=== PATIENT | male | born 1935 | race Caucasian/White ===

== ENCOUNTER → 2018-12-26 09:44 | Outpatient (CLI) | payer MEDICARE, MEDICAID, SELFPAY ==
--- NOTE | 2018-12-26 09:51 | XR_ITS ---
XR shoulder RT min 2V HISTORY: Right shoulder pain ITS.REASON: 3 views ap, scapular-y and axillary views ORDERING PHYSICIAN: Josephine Long MD PATIENT AGE: 83 years Comparison: None FINDINGS: No fracture or dislocation. No lytic or blastic change. There is normal mineralization. Mild hypertrophic changes are present involving the acromioclavicular joint with calcification superior to the AC joint. Mild osteoarthritis noted at the glenohumeral joint. There is subacromial stenosis with mild downsloping of the lateral aspect of the acromion. This may result and rotator cuff pathology. 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
== END ==
PROVIDERS: PCP Internal Medicine Adolescent Medicine; Visit Provider Orthopaedic Surgery
DX: M25.511 Pain in right shoulder (principal)
CPT/HCPCS: 73030

== ENCOUNTER → 2019-06-18 09:19 | Outpatient (CLI) | payer MEDICARE, MEDICAID, SELFPAY ==
--- NOTE | 2019-06-18 09:24 | CA_ITS ---
[facility] RADIOLOGICAL CONSULTATION Patient Name : Adrian Wilburn X-RAY # : [id number] Physician: OLYA KILPATRICK AGE: 83Y : 1935 00:00:00 ( M ) Exam : CA ECHO DOPPLER COMPLETE ACC # : [id number] Study Date : 06/18/2019 09:33:25 Patient Class : O FINAL REPORT CLINICAL DATA: FINDINGS: TRANSCRIBED REPORT EXAM: Comprehensive 2D, Doppler, and color-flow Echocardiogram Benefits Technician: Zahra Fowler, RT(R) Ht: 5 ft 5 in Wt: 180lbs BSA: 1.89 BP: 171/69 mmHg Indications: COPD, edema, HTN, diabetes, CABG, CVA, GERD M-Mode Dimensions RVDd 2.15 cm (0.9-2.6) LA Diam 3.80 cm (1.9-4.0) LVDd 5.31 cm (3.5-5.7) Ao Diam 3.30 cm (2.0-3.7) LVDs 3.95 cm (3.5-5.7) AV Cusp 1.80 cm (1.5-2.6) IVSd 1.29 cm (0.6-1.1) PWd 0.75 cm (0.6-1.1) EF (Teich) 50.00% FS 25.60% EDV (Teich) 135.90 mL ESV (Teich) 67.90 mL LV Diastology E/A Ratio 1.06 Mitral Valve MV A Velocity 68.00 (40-130 cm/s) Electronically signed by : IMPRESSION: Dictated by at Transcribed by at
== END ==
PROVIDERS: PCP Internal Medicine Adolescent Medicine; Visit Provider Internal Medicine Adolescent Medicine
DX: R60.1 Generalized edema (principal)
CPT/HCPCS: 93306

== ENCOUNTER 2020-04-11 14:50 | Inpatient (IN) | payer MEDICARE, MEDICAID, SELFPAY ==
[2020-04-11] VITALS (7 sets, daily range): BP systolic 91–150; BP diastolic 40–62; PULSE 20–67; RESP 18–22; TEMP 36.6; O2SAT 96–100; BMI 27.7; BMI 37.2
--- NOTE | 2020-04-11 14:43 | ECG_ITS ---
APPROVED REPORT Exam: Resting ECG HR:35 bpm ECG Measurements Heart Rate 35 AXES QRSd 122 QRS 31 QT 526 T 86 QTc 401 <Conclusion> Idioventricular rhythm Nonspecific intraventricular conduction delay ST & T wave abnormality, consider lateral ischemia Abnormal ECG Electronically signed by : Fredo Clement, 04/11/2020 17:21:54
--- NOTE | 2020-04-11 14:53 | XR_ITS ---
PROCEDURE: XR CHEST PORTABLE CLINICAL HISTORY: weakness COMPARISON: CR CXR CHEST(2 VIEWS-NOT PORTABLE) from 01/17/2016 CR CXR CHEST(2 VIEWS-NOT PORTABLE) from 05/16/2016 FINDINGS: The lung kim are fairly well expanded and appear clear of infiltrate. There is borderline cardiomegaly and there are sternal wire sutures and surgical clips seen from a previous bypass procedure. There is no pulmonary congestion and there is no definite pleural fluid. There may be minimal atelectasis at the left costophrenic angle. IMPRESSION: Question left basilar atelectasis otherwise no acute chest pathology noted Dictated by: Dr. Nicanor Lennon MD 04/11/2020 15:21 Dr. Nicanor Lennon MD in [place] 04/11/2020 15:21
--- NOTE | 2020-04-11 14:54 | HMH.EDWEAK ---
ED Disposition Clinical Impression: Hyperkalemia, Bradycardia, Weakness Disposition: Admitted As Inpatient Condition on Discharge: Serious - Critical Care Critical Care Time: Yes Attestation: On , the high probability of a clinically significant, sudden or life threatening deterioration of the following system(s) required my full and direct attention, intervention and personal management. The time I documented below is in addition to time spent performing reported procedures but includes the following listed in this critical care notation. Total Critical Care Time: 30 Vital system(s) involved:: Circulatory Failure, Metabolic Failure, Renal Failure My critical care processes included: Assessment & monitoring of V/S, Initial and Re-exams, Data Review/Interpretation, Coordinating Care, Medication Orders and management, Documentation Medical Decision Making - Medical Records Medical records reviewed: Yes: I reviewed the patient's medical records. - Rodrigo Inquiry Pt receiving controlled substance: No Vital Signs: 04/11/20 14:51 04/11/20 15:01 Temperature 97.9 F Temperature Source Oral Pulse Rate [Left Radial] 39 L Pulse Rate [Right Radial] 48 L Respiratory Rate 18 18 Blood Pressure [Right Arm] 117/44 L 150/62 H Blood Pressure Mean [Right Arm] 68 91 Blood Pressure Source [Right Arm] Automatic Cuff Blood Pressure Position [Right Arm] Sitting Supine 02 Sat by Pulse Oximetry 98 100 Oxygen Delivery Method Room Air Room Air - Lab Data Lab Results 04/11/20 14:55: WBC 8.9, RBC 3.71 L, Hgb 12.0 L, Hct 37.5 L, MCV 101.1 H, MCH 32.4 H, MCHC 32.0, RDW 13.8, Plt Count 174, MPV 8.0, Neut % (Auto) 73.9, Lymph % (Auto) 18.7, [place] % (Auto) 5.7, Eos % (Auto) 0.5, Baso % (Auto) 1.3, Neut # (Auto) 6.6, Lymph # (Auto) 1.7, [place] # (Auto) 0.5, Eos # (Auto) 0.0, Baso # (Auto) 0.1 04/11/20 14:55: Sodium 139, Potassium 8.0 H*, Chloride 107, Carbon Dioxide 16 L, Anion Gap 24.0 H, BUN 50 H, Creatinine 3.80 H, Estimated Creat Clear 21, Estimated GFR 15 L*, Est GFR ( Amer) 18 L*, Glucose 118 H, Calcium 9.3, Total Bilirubin 0.7, AST 207 H, ALT 201 H, Alkaline Phosphatase 114, Troponin I 0.02, Total Protein 8.1, Albumin 4.6, Globulin 3.5 H, Albumin/Globulin Ratio 1.3, Lipase 225 04/11/20 15:35: Urine Color Yellow, Urine Appearance Clear, Urine pH 5.0, Ur Specific [place] 1.025, Urine Protein Negative, Urine Glucose (UA) Negative, Urine Ketones Negative, Urine Blood Negative, Urine Nitrate Negative, Urine Bilirubin Negative, Urine Urobilinogen 0.2, Ur Leukocyte Esterase Negative Result diagrams: 04/11/20 14:55 04/11/20 14:55 Orders (Tests/Meds): ED MEDICATIONS Generic Name Dose Route Start Last Admin Trade Name Freq PRN Reason Stop Dose Admin Sodium Chloride 1,000 mls @ 999 mls/hr 04/11/20 15:15 04/11/20 15:00 Sod Chlor 0.9% 1000ml Bag IV 04/11/20 16:15 999 mls/hr .Q1H1M GIDEON Administration Ondansetron HCl 4 mg 04/11/20 15:41 Zofran 4mg/2ml Vial IV 05/11/20 15:40 ONCE PRN Nausea Discontinued Medications Generic Name Dose Route Start Last Admin Trade Name Freq PRN Reason Stop Dose Admin Albuterol Sulfate 7.5 mg 04/11/20 15:19 Albuterol 0.083% 2.5mg/3ml Neb IH 04/11/20 15:20 ONCE ONE Atropine Sulfate 0.5 mg 04/11/20 15:04 04/11/20 15:00 Atropine 1mg/10ml Syringe IV 04/11/20 15:05 0.5 mg ONCE ONE Administration Dextrose 25 ml 04/11/20 15:19 04/11/20 15:22 Dextrose 50% 50ml Syringe IVP 04/11/20 15:20 25 ml ONCE ONE Administration Insulin Human Regular 10 unit 04/11/20 15:18 04/11/20 15:22 Humulin R Insulin 100 Units/Ml 10ml Vial IVP 04/11/20 15:19 10 unit ONCE ONE Administration ORDERS Category Date Time Status Full Resp Panel (COVID)(INPT) Routine Lab 04/11/20 15:34 Ordered Potassium Timed Lab 04/11/20 16:30 Ordered Troponin I Q3H Lab 04/11/20 18:00 Ordered Troponin I Q3H Lab 04/11/20 21:00 Ordered Urinalysis and Microscopic Stat L
--- NOTE | 2020-04-11 15:00 | PC.NURSE ---
pt confused, NH reports that pt is normally alert and oriented x 3 pt restless. family at bedside
[2020-04-11 15:10] LABS: Basophils # 0.1 K/mm3 (0-0.2); Basophils % 1.3 % (0.1-2.0); Eosinophils % 0.5 % (0.1-12.0); Hematocrit 37.5 % (42.0-52.0); Lymphocytes # 1.7 K/mm3 (0.7-4.5); Lymphocytes % 18.7 % (10-50); Mean Corpuscular Hemoglobin 32.4 pg (27.0-31.2); Mean Corpuscular Volume 101.1 fl (80-94); Monocytes # 0.5 K/mm3 (0.1-1.0); Monocytes % 5.7 % (1.7-9.3); Neutrophils # 6.6 K/mm3 (1.8-7.8); Neutrophils % 73.9 % (37.0-80.0); Platelet Count 174 K/mm3 (142-424); Red Blood Count 3.71 M/mm3 (4.60-6.20); Red Cell Distribution Width 13.8 % (11.5-17.5); White Blood Count 8.9 K/mm3 (4.8-10.8)
[2020-04-11 15:14] LABS: Chloride 107 mmol/L (98-107); Sodium 139 mmol/L (136-145)
[2020-04-11 15:16] LABS: Alanine Aminotransferase 201 U/L (12-78); Alkaline Phosphatase 114 U/L (38-126); Aspartate Amino Transferase 207 U/L (17-59); Bilirubin,Total 0.7 mg/dl (0.2-1.3); Blood Urea Nitrogen 50 mg/dl (9-20); Creatinine Clearance Estimated 21 mL/min (50-200); Estimated Glomerular Filt Rate 15 ml/min (>60); GFR (African American) 18 ML/MIN (>60)
[2020-04-11 15:17] LABS: Albumin Level 4.6 g/dl (3.5-5.0); Albumin/Globulin Ratio 1.3 (1.1-1.8); Calcium 9.3 mg/dl (8.4-10.2); Carbon Dioxide 16 mmol/L (22.0-30.0); Globulin 3.5 g/dL (1.3-3.2); Glucose 118 mg/dl (74-100); Lipase 225 U/L (23-300); Total Protein,Serum 8.1 g/dl (6.3-8.2)
--- NOTE | 2020-04-11 15:17 | PC.NURSE ---
notified ER of critical potassium level of 8.0, called per amanda in the lab states no hemolysis in this sample.
--- NOTE | 2020-04-11 15:28 | ECG_ITS ---
APPROVED REPORT Exam: Resting ECG HR:44 bpm ECG Measurements Heart Rate 44 AXES QRSd 98 QRS 39 QT 502 T 72 QTc 429 <Conclusion> Junctional bradycardia ST & T wave abnormality, consider anterolateral ischemia and/or Dig effect Abnormal ECG Electronically signed by : Fredo Clement, 04/11/2020 17:17:07
[2020-04-11 15:29] LABS: Troponin I 0.02 ng/ml (0.00-0.034)
--- NOTE | 2020-04-11 15:30 | PC.NURSE ---
tester operator paging dr. garcia who is electronic industrial controls mechanic for dr. starkey
--- NOTE | 2020-04-11 15:35 | PC.NURSE ---
notified lab of inpt covid test for admission, spoke Diana per Dr. Castro admit pt to stepdown, notified house painting instructor of admission
--- NOTE | 2020-04-11 15:36 | PC.NURSE ---
rn house supervisor gave bed assignment of room 217 notified registration staff of admission information
[2020-04-11 15:39] LABS: Microscopic, Urine URINE MICROSCOPIC (MICROSCOPIC)
[2020-04-11 15:40] LABS: Appearance,Urine CLEAR (Clear); Bilirubin,Urine Negative (Negative); Blood, Urine Negative (Negative); Color,Urine YELLOW (Yellow); Glucose,Urine (UA) Negative (Negative); Ketones,Urine Negative (Negative); Leukocyte Esterase,Urine Negative (Negative); Nitrate,Urine Negative (Negative); Protein,Urine Negative (Negative); Specific Gravity, Urine 1.025 (1.005-1.030); Urobilinogen,Urine 0.2 EU/dl (0.2)
[2020-04-11 15:47] LABS: RBC,Urine Occasional #/hpf (0-3); Squamous Epithelial Cell,Urine Occasional #/hpf (0-5)
[2020-04-11 15:48] LABS: Hyaline Casts,Urine Occasional #/lpf (0)
[2020-04-11 15:59] LABS: Adenovirus,PCR Not Detected (NotDetected); Bordetella Pertussis Not Detected (NotDetected); Chlamydophila Pneumoniae, PCR Not Detected (NotDetected); Coronavirus 19, PCR Not Detected (NotDetected); Coronavirus 229E Not Detected (NotDetected); Coronavirus NL63 Not Detected (NotDetected); Coronavirus OC43 Not Detected (NotDetected); Coronovirus HKU1,PCR Not Detected (NotDetected); Human Metapneumovirus Not Detected (NotDetected); Influenza A, PCR Not Detected (NotDetected); Influenza AH1, 2009 Not Detected (NotDetected); Influenza AH1, PCR Not Detected (NotDetected); Influenza AH3,PCR Not Detected (NotDetected); Influenza B, PCR Not Detected (NotDetected); Mycoplasma Pneumoniae, PCR Not Detected (NotDetected); Parainfluenza 1, PCR Not Detected (NotDetected); Parainfluenza 2, PCR Not Detected (NotDetected); Parainfluenza 3, PCR Not Detected (NotDetected); Parainfluenza 4, PCR Not Detected (NotDetected); Respiratory Syncytial Virus Not Detected (NotDetected); Rhinovirus/Enterovirus Not Detected (NotDetected)
--- NOTE | 2020-04-11 16:00 | PC.NURSE ---
pt continues to be confused and restless. pt's family at bedside
[2020-04-11 17:07] LABS: Potassium 7.4 mmoL/L (3.5-5.1)
--- NOTE | 2020-04-11 17:07 | PC.NURSE ---
critical potassium result called per amanda in lab, notified RAMANDEEP CANO
--- NOTE | 2020-04-11 17:10 | PC.NURSE ---
pt c/o lt lower back pain
--- NOTE | 2020-04-11 17:28 | PC.NURSE ---
report called to floor
--- NOTE | 2020-04-11 18:00 | PC.NURSE ---
pt resting resp even and easy, color pink. pt to be transferred to floor. belongings placed in bag and sent to floor with pt
[2020-04-11 18:40] LABS: Troponin I 0.02 ng/ml (0.00-0.034)
--- NOTE | 2020-04-11 19:18 | HMH.ACPN ---
Internal Medicine - PN: Subj *Date: 04/11/20 *Time: 19:18 Interval history: I responded to CODE BLUE upstairs for this patient. Epinephrine and ACLS protocol had been started. [id number] was in progress. At first pulse check on my arrival he had PEA. More epinephrine was given in addition to calcium chloride secondary to his hyperkalemia. We did temporarily have Dwight for less than 15 seconds with bradycardia. He was given atropine, but quickly declined again into PEA. ACLS continued to be followed, please see code sheet. Ultimately time of called at 1633. I discussed this with family. Critical care approximately 30 minutes including response time and discussions with family, cardiovascular and respiratory management, medication decisions and chart review. Exam Vital signs and Labs for Last 24 Hours: Temp Pulse Resp BP Pulse Ox 98 F 55 L 22 91/55 L 98 04/11/20 18:12 04/11/20 18:12 04/11/20 18:12 04/11/20 18:12 04/11/20 17:00 Laboratory Results - last 24 hr 04/11/20 14:55: WBC 8.9, RBC 3.71 L, Hgb 12.0 L, Hct 37.5 L, MCV 101.1 H, MCH 32.4 H, MCHC 32.0, RDW 13.8, Plt Count 174, MPV 8.0, Neut % (Auto) 73.9, Lymph % (Auto) 18.7, [place] % (Auto) 5.7, Eos % (Auto) 0.5, Baso % (Auto) 1.3, Neut # (Auto) 6.6, Lymph # (Auto) 1.7, [place] # (Auto) 0.5, Eos # (Auto) 0.0, Baso # (Auto) 0.1 04/11/20 14:55: Sodium 139, Potassium 8.0 H*, Chloride 107, Carbon Dioxide 16 L, Anion Gap 24.0 H, BUN 50 H, Creatinine 3.80 H, Estimated Creat Clear 21, Estimated GFR 15 L*, Est GFR ( Amer) 18 L*, Glucose 118 H, Calcium 9.3, Total Bilirubin 0.7, AST 207 H, ALT 201 H, Alkaline Phosphatase 114, Troponin I 0.02, Total Protein 8.1, Albumin 4.6, Globulin 3.5 H, Albumin/Globulin Ratio 1.3, Lipase 225 04/11/20 15:35: Urine Color Yellow, Urine Appearance Clear, Urine pH 5.0, Ur Specific [place] 1.025, Urine Protein Negative, Urine Glucose (UA) Negative, Urine Ketones Negative, Urine Blood Negative, Urine Nitrate Negative, Urine Bilirubin Negative, Urine Urobilinogen 0.2, Ur Leukocyte Esterase Negative, Urine RBC Occasional, Urine WBC 3-5, Ur Squamous Epith Cells Occasional, Urine Bacteria None, Hyaline Casts Occasional 04/11/20 15:50: Chlamy pneumoniae PCR Not detected, Adenovirus (PCR) Not detected, B. pertussis DNA (PCR) Not detected, Coronavirus OC43 (PCR) Not detected, Coronavirus HKU1 (PCR) Not detected, Coronavirus 229E (PCR) Not detected, COVID-19 PCR Not detected, Coronavirus NL63 (PCR) Not detected, Human Metapneumovir PCR Not detected, Influenza A (H1) PCR Not detected, Influ A (H1N1/09) PCR Not detected, Influenza A (H3) PCR Not detected, Influenza Type A (PCR) Not detected, Influenza Type B (PCR) Not detected, M. pneumoniae (PCR) Not detected, Parainfluenza 1 (PCR) Not detected, Parainfluenza 2 (PCR) Not detected, Parainfluenza 3 (PCR) Not detected, Parainfluenza 4 (PCR) Not detected, RSV (PCR) Not detected, Entero/Rhino (PCR) Not detected 04/11/20 16:45: Potassium 7.4 H* 04/11/20 18:05: Troponin I 0.02 I & O for Last 24 hours: Intake & Output 04/08/20 04/09/20 04/10/20 04/11/20 23:59 23:59 23:59 23:59 Weight 98.43 kg
--- NOTE | 2020-04-11 19:34 | PC.NURSE ---
Myself and Zahra Elder , went to ER to retrieve patient. Upon arriving, an ER staff member was updating us on his status. She stated patient was tachypneic and suggested ER doc to assess patient before bringing to room. ER doc went in to check on patient and verbalized patient was ok to transport to 2nd floor. Upon arriving to patients room patient was transferred from [facility] to his bed. OANH Soler and OANH Andersen changed patients gown and applied a brief. Patient stopped breathing and no pulse could be palpated. CPR was started immediately (at approx 1820), code blue announced. 1823- cpr in progress, pi administered 1824 - pulse check, no pule, cpr resumed 1826 - epi administered, cpr still in progress 1827 - pulse check, pt appears to try to guppy breath, atropine administered, no pulse palpated,cpr resumed 1827 - compressions in progress 1829 - epi given, compressions still in progress 1831 - PEA on monitor 1832 - time of announced by Dr Au 1933 - no pulse 1850- Environmental Remediation Specialist notified 190 - jean marie notified, pt excluded for donation
--- NOTE | 2020-04-11 20:01 | PC.NURSE ---
Eber Naranjo, Digital Account Supervisor notified home ([place])for family
== END 2020-04-11 21:48 | disposition expired | DRG 641 ==
LOC: ER 14:54 → 2ND 15:43
PROVIDERS: Admitting Provider Family Medicine; Emergency Provider Emergency Medicine; PCP Internal Medicine Adolescent Medicine; Visit Provider Internal Medicine Adolescent Medicine
DX: E87.5 Hyperkalemia (principal); I10 Essential (primary) hypertension; E03.9 Hypothyroidism, unspecified; R00.1 Bradycardia, unspecified; E78.5 Hyperlipidemia, unspecified; Z79.82 Long term (current) use of aspirin; Z79.899 Other long term (current) drug therapy
CPT/HCPCS: 71045; 80053; 81001; 83690; 84132; 84484; 85025; 87581; 87633; 87798; 93005; 96365; 96375; 99285